=== PATIENT | female | born 1960 ===

== ENCOUNTER 2021-05-25 12:00 | Day surgery (SDC) | payer OTHER | END 2021-05-25 16:20 | disposition home or self-care (01) | LOC: AMB-ENDOS 12:00 | PROVIDERS: ATTEND Surgery | DX: D12.0 Benign neoplasm of cecum (principal); K59.09 Other constipation; R14.0 Abdominal distension (gaseous); Z20.822 Contact with and (suspected) exposure to COVID-19; I10 Essential (primary) hypertension; E06.9 Thyroiditis, unspecified; Z88.2 Allergy status to sulfonamides; Z91.041 Radiographic dye allergy status ==